=== PATIENT | female | born 1995 | race Caucasian/White ===

== ENCOUNTER 2018-11-24 13:43 | Outpatient (CLI) | payer OTHER ==
--- NOTE | 2018-11-24 15:51 | ULT ---
LIMITED ULTRSOUND LEFT BREAST: DATE: 11/24/2018. HISTORY: Palpable abnormality left breast. FINDINGS: Limited sonographic evaluation left breast was performed. A lobulated smoothly marginated and homoge neous hypoechoic mass is seen in the left breast at the 10 o'clock position which corresponds to the patient's clinically palpable abnormality. This may represent a fibroadenoma. IMPRESSION: 1. BIRADS category 4, suspicious abnormality. Biopsy is suggested. This mass is amenable to ultras ound-guided left breast biopsy. 2. The above findings were discussed with the patient as well as the patient's mother at the time of this examination. Findings were also discussed with Dr. Rasta Burgos on 11/24/2018 at 1444 hours. CODE CR POS: OFF
== END 2018-11-24 13:44 | disposition home or self-care (01) ==
LOC: BICULT 13:43
PROVIDERS: ATTEND Obstetrics & Gynecology
DX: N64.59 Other signs and symptoms in breast (principal)

== ENCOUNTER → 2019-01-26 | Day surgery (SDC) | payer OTHER ==
--- NOTE | 2019-01-26 14:01 | MMO ---
Left Breast MAMMO Unilat Diag DDI LT. CLINICAL HISTORY: Patient is 24 years old and is seen for breast biopsy. The patient has no family history of breast cancer. The patient has no personal history of cancer. The patient has a history of left Ultrasound Guided Core Biopsy in Jan, 2019. VIEWS: The views performed were: left craniocaudal and left mediolateral oblique. FILMS COMPARED: The present examination has been compared to a prior imaging study performed at [facility] on 11/24/2018. MAMMOGRAM FINDINGS: There is a biopsy clip seen in the left breast. IMPRESSION: BIOPSY CLIP IN THE LEFT BREAST IS CONFIRMED UTILIZING POST PROCEDURE MAMMOGRAM. THE RESULTS OF THIS EXAM WERE SENT TO THE PATIENT. MAMMOGRAPHY NOTE: 1. A negative mammogram report should not delay a biopsy if a dominant of clinically suspicious mass is present. 2. Approximately 10% to 15% of breast cancers are not detected by mammography. 3. Adenosis and dense breasts may obscure an underlying neoplasm.
--- NOTE | 2019-01-26 14:41 | ULT ---
ULTRASOUND GUIDED LEFT BREAST MASS BIOPSY 01/26/19 INDICATION: Suspicious left breast mass in the 10 o'clock position. TECHNIQUE: Informed consent was obtained. Preprocedure ultrasound was performed for guidance purposes only. The previously described left breast mass in the 10 o'clock position was re-identified. Site overlyin g this region was prepped and draped in the usual sterile fashion. Buffered 1% lidocaine was administ ered overlying subcutaneous tissues. Under ultrasound guidance, a 14 gauge core biopsy needle was gu ided onto the lesion. Three separate core samples were obtained of the lesion. Following this, a all biopsy clip was placed within the lesion. Pressure was held at the biopsy site until hemostasis was obtained. The site was then cleansed and bandaged. The patient was then escorted to the Mammograp hy Suite for post mammographic biopsy clip placement on mammogram. IMPRESSION: BI-RADS 4: Suspicious Abnormality - Biopsy Should Be Considered Successful ultrasound guided left breast mass core biopsy. POS: BRIANNA
== END ==
LOC: BICULT 12:33
PROVIDERS: ATTEND Obstetrics & Gynecology
PROC: 0HBU3ZX Excision of Left Breast, Percutaneous Approach, Diagnostic (ICD-10-PCS; principal; 2019-01-26)
DX: D24.2 Benign neoplasm of left breast (principal)
CPT/HCPCS: 19083; 88305